=== PATIENT | female | born 1975 | race Caucasian/White ===

== ENCOUNTER 2017-01-12 13:05 | Emergency (ER) | payer MEDICAID ==
[~2017-01-12] VITALS: Ht 170.2 cm; Wt 120.0 kg
[~2017-01-12 13:05] MED LIST: IBUP-1542 PO; MAG-19 PO; OMEP20CA9 PO; ONDA4TAB35 PO; VIC PO
[2017-01-12 13:07] VITALS: Ht 170.2 cm; Wt 120.0 kg
[2017-01-12] MEDS ORDERED: SULF1TAB31 PO (13:27)
[2017-01-12] MEDS ORDERED: CEPH-443 PO (13:27)
[2017-01-12] MEDS ORDERED: IBUP-1542 PO (13:27)
[2017-01-12] MEDS ORDERED: LIDOCAINE 1% (MDV) 20 ML INJ SC ONE (13:30)
[2017-01-12] MEDS ORDERED: CEFTRIAXONE 1 GM INJ IM ONE (13:30)
[2017-01-12] MEDS ORDERED: TRIMETHOPRIM/SULFAMETHOX (DS) TAB PO ONE (13:30)
[2017-01-12] MEDS ORDERED: IBUPROFEN 600 MG TAB PO ONE (13:30)
--- NOTE | 2017-01-12 13:35 | ERD ---
ER Documentation Chief Complaint Date/Time DATE: 01/12/17 TIME: 13:33 Chief Complaint LT LEG PAIN /REDNESS /SWELLING SINCE TUESDAY HPI This 41-year-old female presents with some redness to the left fenton for last 2 days. Started possibly after a alliance party but patient denies any history of insect bite or history of trauma. She has no fevers or vomiting. ROS All systems reviewed and are negative except as per history of present illness. Medications Home Meds Active Scripts Ibuprofen* (Motrin*) 600 Mg Tab, 600 MG PO Q6, #15 TAB Prov:DENISE MESA MD 01/12/17 Sulfamethoxazole/Trimethoprim* (Bactrim Ds* Tablet) 1 Each Tablet, 1 TAB PO BID for 7 Days, #14 TAB Prov:DENISE MESA MD 01/12/17 Cephalexin* (Keflex*) 500 Mg Capsule, 500 MG PO QID for 7 Days, CAP Prov:DENISE MESA MD 01/12/17 Omeprazole* (Prilosec*) 20 Mg Capsule.dr, 20 MG PO DAILY, #30 CAP Prov:LOIS LO NP 01/28/16 Ondansetron Hcl* (Zofran* ODT) 4 mg -ODT Tab.disper, 4 MG PO Q8 Y for NAUSEA AND /OR VOMITING, #30 TAB Prov:LOIS LO NP 01/28/16 Magaldrate/Simethicone* (Mylanta*) 355 Ml Susp, 30 ML PO QID Y for GASTROINTESTINAL UPSET, #1 BOTTLE Prov:LOIS LO NP 01/28/16 Ibuprofen* (Motrin*) 600 Mg Tab, 600 MG PO Q6, #30 TAB Prov:SERGE SUTTON 04/29/15 Reported Medications Acetaminophen/Hydrocodone (Vicodin) 1 Tab Tab, PO Q8 06/25/12 [None] No Conflict Check 02/16/12 [None] No Conflict Check 10/12/10 Allergies Allergies: Coded Allergies: codeine (Verified Allergy, Mild, RASH, 04/29/15) PMhx/Soc History of Surgery: Yes ( x 3) Anesthesia Reaction: No Hx Neurological Disorder: No Hx Respiratory Disorders: No Hx Cardiac Disorders: Yes (HTN) Hx Psychiatric Problems: No Hx Miscellaneous Medical Probl: No Hx Alcohol Use: No Hx Substance Use: No Hx Tobacco Use: No Physical Exam Vitals Vital Signs Date Time Temp Pulse Resp B/P Pulse Ox O2 Delivery O2 Flow Rate FiO2 01/12/17 13:07 98.1 75 18 141/67 99 Physical Exam Const: [] Alert, [id number] per Head: Atraumatic Eyes: Normal Conjunctiva ENT: Normal External Ears, Nose and Mouth. Neck: Full range of motion..~ No meningismus. Resp: Clear to auscultation bilaterally Cardio: Regular rate and rhythm, no murmurs Abd: Soft, non tender, non distended. Normal bowel sounds Skin: No petechiae or rashes. There is some erythema and warmth in the left anterior fenton with some mild swelling. There is no calf swelling or Homans sign or fluctuance or obvious point of injury. Is no effusion or deformities of the foot. The redness extends from the left ankle to the left mid fenton. Back: No midline or flank tenderness Ext: No cyanosis, or edema Neur: Awake and alert Psych: Normal Mood and Affect Results 24 hrs Current Medications Medications (Trade) Dose Ordered Sig/Matt Route PRN Reason Start Time Stop Time Status Last Admin Dose Admin Ceftriaxone Sodium (Rocephin) 1 gm ONCE ONCE IM 01/12/17 13:30 01/12/17 13:31 DC Lidocaine (Xylocaine 1% (Mdv) 20 ml) 20 ml ONCE ONCE SC 01/12/17 13:30 01/12/17 13:31 DC Ibuprofen (Motrin) 600 mg ONCE ONCE PO 01/12/17 13:30 01/12/17 13:31 DC Trimethoprim/ Sulfamethoxazole (Bactrim (Ds)) 1 tab ONCE ONCE PO 01/12/17 13:30 01/12/17 13:31 DC Procedures/MDM Patient presents with signs and symptoms of cellulitis of the left lower extremity. Current signs and symptoms do not suggest fracture, dislocation, abscess, DVT, osteomyelitis, tenosynovitis, compartment syndrome, ischemia.. Patient was given Rocephin 1 g here and was treated with Bactrim and Keflex and ibuprofen at home and instructions for elevation. Patient was advised to recheck in 2 days for further evaluation otherwise recheck sooner for fevers, vomiting, worsening redness, new worsening symptoms. Departure Diagnosis: Primary Impression: Cellulitis Site of cellulitis: extremity Site of cellulitis of extremity: lower extremity Laterality: left Qualified Code: L03.116 - Cellulitis of left lower extremity Condition: Stable Patient Instructions: Cellulitis Additional Instructions: CHEQUE EN 2 SLATER, MAS PRONTO PARA MAS BUENO. JC SUN. PONE ARRIBA EN CASA. DENISE MESA MD Jan 12, 2017 13:34
== END 2017-01-12 14:04 | disposition home or self-care (01) ==
LOC: FTE 13:05
DX: L03.116 Cellulitis of left lower limb (principal); I10 Essential (primary) hypertension
CPT/HCPCS: 96372; J0696; Z7502; Z7610

== ENCOUNTER 2017-01-14 21:40 | Inpatient (IN) | payer MEDICAID ==
[~2017-01-14] VITALS: Ht 167.6 cm; Wt 121.3 kg
[~2017-01-14 21:40] MED LIST changes: +CEPH-443 PO; +SULF1TAB31 PO
--- NOTE | 2017-01-14 23:03 | ERA ---
ER Documentation Chief Complaint Date/Time DATE: 01/14/17 TIME: 23:01 Chief Complaint rednes and swelling right leg pain , treated for cellulitis seen her on01/12 (CORETTA TANG PA-C) HPI This is a morbidly obese 41-year-old female returning to the emergency department with a chief complaint of worsening left lower extremity infection. Patient was diagnosed with cellulitis 2 days ago given Keflex, Bactrim and ibuprofen for symptoms. Patient states that the first day the symptoms improved a little bit but today the symptoms are worse with increased pain and swelling and increased erythematous area. Patient denies fever, chills, using other medications for symptoms, aches or similar symptoms in the past. Patient denies medical conditions. No recent travel. Vaccination status up-to-date. Patient has no other complaints and describes no other associated manifestations per (CORETTA TANG PA-C) ROS All systems reviewed and are negative except as per history of present illness. (CORETTA TANG PA-C) Medications Home Meds Active Scripts Ibuprofen* (Motrin*) 600 Mg Tab, 600 MG PO Q6, #15 TAB Prov:DENSIE MESA MD 01/12/17 Sulfamethoxazole/Trimethoprim* (Bactrim Ds* Tablet) 1 Each Tablet, 1 TAB PO BID for 7 Days, #14 TAB Prov:DENISE MESA MD 01/12/17 Cephalexin* (Keflex*) 500 Mg Capsule, 500 MG PO QID for 7 Days, CAP Prov:DENISE MESA MD 01/12/17 Omeprazole* (Prilosec*) 20 Mg Capsule.dr, 20 MG PO DAILY, #30 CAP Prov:LOIS LO NP 01/28/16 Ondansetron Hcl* (Zofran* ODT) 4 mg -ODT Tab.disper, 4 MG PO Q8 Y for NAUSEA AND /OR VOMITING, #30 TAB Prov:LOIS LO NP 01/28/16 Magaldrate/Simethicone* (Mylanta*) 355 Ml Susp, 30 ML PO QID Y for GASTROINTESTINAL UPSET, #1 BOTTLE Prov:LOIS LO NP 01/28/16 Ibuprofen* (Motrin*) 600 Mg Tab, 600 MG PO Q6, #30 TAB Prov:SERGE SUTTON 04/29/15 Reported Medications Acetaminophen/Hydrocodone (Vicodin) 1 Tab Tab, PO Q8 06/25/12 [None] No Conflict Check 02/16/12 [None] No Conflict Check 10/12/10 Allergies Allergies: Coded Allergies: codeine (Verified Allergy, Mild, RASH, 04/29/15) PMhx/Soc History of Surgery: Yes ( x 3) Anesthesia Reaction: No Hx Neurological Disorder: No Hx Respiratory Disorders: No Hx Cardiac Disorders: Yes (HTN) Hx Psychiatric Problems: No Hx Miscellaneous Medical Probl: No Hx Alcohol Use: No Hx Substance Use: No Hx Tobacco Use: No (CORETTA TANG PA-C) Physical Exam Vitals Vital Signs Date Time Temp Pulse Resp B/P Pulse Ox O2 Delivery O2 Flow Rate FiO2 01/14/17 21:42 97.8 71 20 160/70 100 (CAMI LOAIZA MD) Physical Exam Const: Morbidly obese 41-year-old female in no acute distress. [place]- speaking. 's claim taker and seems reliable. Head: Atraumatic Eyes: Normal Conjunctiva ENT: Normal External Ears, Nose and Mouth. Neck: Full range of motion..~ No meningismus. Resp: Clear to auscultation bilaterally Cardio: Regular rate and rhythm, no murmurs. Cap refill less than 2 seconds. Posterior tibial pulses 2+ bilaterally. Dorsalis pedal pulses decreased due to edema. Abd: Soft, non tender, non distended. Normal bowel sounds Skin: Warm erythematous macule most consistent with cellulitis on the left lower extremity spanning from 2-3 cm above the ankle to 5-6 cm below the knee on the anterior side and below the calf in the region of the visible Delgado on the posterior side. No petechiae or rashes. Blanches. Moderate tenderness to palpation. Back: No midline or flank tenderness Ext: 2 pitting edema bilaterally. Edematous left foot on dorsal aspect. No cyanosis. Neur: Awake and alert Psych: Normal Mood and Affect (CORETTA TANG PA-C) Result Diagram: 01/16/1725 01/16/1725 Results 24 hrs Laboratory Tests Test 01/14/17 23:00 01/14/17 23:20 Urine Color YELLOW Urine Clarity SLIGHTLY CLOUDY Urine pH 5.0 Urine Specific [place] 1.026 Urine Ketones NEGATIVEmg/dL Urine Nitrite NEGATIVEmg/dL Urine Bilirubin NEGATIVEmg/dL Urine Urobilinogen NEGATIVEmg/dL Urine Leukocyte Esterase NEGATIVELeu/ul Urine Microscopic RBC 109/HPF Urine Microscopic WBC 2/HPF Urine Squamous Epithelial Cells FEW/HPF Urine Bacteria FEW/HPF Urine Mucus FEW/HPF Urine Hemoglobin 2+mg/dL Urine Glucose NEGATIVEmg/dL Urine Total Protein 1+mg/dl White Blood Count 10.510^3/ul Red Blood Count 4.7110^6/ul Hemoglobin 9.9g/dl Hematocrit 33.0% Mean Corpuscular Volume 70.1fl Mean Corpuscular Hemoglobin 21.0pg Mean Corpuscular Hemoglobin Concent 30.0g/dl Red Cell Distribution Width 15.5% Platelet Count 98190^3/UL Mean Platelet Volume 10.4fl Neutrophils % 58.0% Lymphocytes % 30.1% Monocytes % 8.5% Eosinophils % 2.2% Basophils % 0.4% Nucleated Red Blood Cells % 0.0/100WBC Neutrophils # 6.110^3/ul Lymphocytes # 3.210^3/ul Monocytes # 0.910^3/ul Eosinophils # 0.210^3/ul Basophils # 0.010^3/ul Nucleated Red Blood Cells # 0.010^3/ul Prothrombin Time 13.0Sec Prothrombin Time Ratio 1.0 INR International Normalized Ratio 0.98 Activated Partial Thromboplast Time 32.2Sec Sodium Level 142mmol/L Potassium Level 3.8mmol/L Chloride Level 102mmol/L Carbon Dioxide Level 24mmol/L Anion Gap 20 Blood Urea Nitrogen 11mg/dl Creatinine 0.77mg/dl Glucose Level 82mg/dl Calcium Level 9.5mg/dl Total Bilirubin 0.1mg/dl Direct Bilirubin 0.00mg/dl Indirect Bilirubin 0.1mg/dl Aspartate Amino Transf (AST/SGOT) 28IU/L Alanine Aminotransferase (ALT/SGPT) 37IU/L Alkaline Phosphatase 123IU/L Total Protein 8.2g/dl Albumin 4.2g/dl Globulin 4.00g/dl Albumin/Globulin Ratio 1.05 Current Medications Medications (Trade) Dose Ordered Sig/Matt Route PRN Reason Start Time Stop Time Status Last Admin Dose Admin Ceftriaxone Sodium 1 gm 1 gm ONCE ONCE IM 01/15/17 01:00 01/15/17 01:00 DC Ceftriaxone Sodium 50 ml @ 100 mls/hr ONCE ONCE IVPB 01/15/17 01:00 01/15/17 01:29 DC 01/15/17 00:52 Sodium Chloride (NS) 1,000 ml @ 1,000 mls/hr Q1H ONCE IV 01/15/17 01:00 01/15/17 01:59 DC 01/15/17 00:52 Morphine Sulfate (morphine) 4 mg ONCE ONCE IM 01/15/17 02:30 01/15/17 02:31 DC 01/15/17 02:18 (CAMI LOAIZA MD) Results 24 hrs Laboratory Tests Test 01/14/17 23:00 01/14/17 23:20 Urine Color YELLOW Urine Clarity SLIGHTLY CLOUDY Urine pH 5.0 Urine Specific [place] 1.026 Urine Ketones NEGATIVEmg/dL Urine Nitrite NEGATIVEmg/dL Urine Bilirubin NEGATIVEmg/dL Urine Urobilinogen NEGATIVEmg/dL Urine Leukocyte Esterase NEGATIVELeu/ul Urine Microscopic RBC 109/HPF Urine Microscopic WBC 2/HPF Urine Squamous Epithelial Cells FEW/HPF Urine Bacteria FEW/HPF Urine Mucus FEW/HPF Urine Hemoglobin 2+mg/dL Urine Glucose NEGATIVEmg/dL Urine Total Protein 1+mg/dl White Blood Count 10.510^3/ul Red Blood Count 4.7110^6/ul Hemoglobin 9.9g/dl Hematocrit 33.0% Mean Corpuscular Volume 70.1fl Mean Corpuscular Hemoglobin 21.0pg Mean Corpuscular Hemoglobin Concent 30.0g/dl Red Cell Distribution Width 15.5% Platelet Count 83815^3/UL Mean Platelet Volume 10.4fl Neutrophils % 58.0% Lymphocytes % 30.1% Monocytes % 8.5% Eosinophils % 2.2% Basophils % 0.4% Nucleated Red Blood Cells % 0.0/100WBC Neutrophils # 6.110^3/ul Lymphocytes # 3.210^3/ul Monocytes # 0.910^3/ul Eosinophils # 0.210^3/ul Basophils # 0.010^3/ul Nucleated Red Blood Cells # 0.010^3/ul Prothrombin Time 13.0Sec Prothrombin Time Ratio 1.0 INR International Normalized Ratio 0.98 Activated Partial Thromboplast Time 32.2Sec Sodium Level 142mmol/L Potassium Level 3.8mmol/L Chloride Level 102mmol/L Carbon Dioxide Level 24mmol/L Anion Gap 20 Blood Urea Nitrogen 11mg/dl Creatinine 0.77mg/dl Glucose Level 82mg/dl Calcium Level 9.5mg/dl Total Bilirubin 0.1mg/dl Direct Bilirubin 0.00mg/dl Indirect Bilirubin 0.1mg/dl Aspartate Amino Transf (AST/SGOT) 28IU/L Alanine Aminotransferase (ALT/SGPT) 37IU/L Alkaline Phosphatase 123IU/L Total Protein 8.2g/dl Albumin 4.2g/dl Globulin 4.00g/dl Albumin/Globulin Ratio 1.05 (CORETTA TANG PA-C) Procedures/MDM 41-year-old female with a chief complaint of rash on left lower extremity as described in the history and physical examination. Patient was diagnosed with cellulitis 2 days ago and states has gotten worse since then. I enlisted the help of my supervising physician who has suggested to get CBC, CMP, urinalysis, urine . Lab results largely unremarkable for systemic infection. I have little suspicion for DVT. My attending has evaluated the patient and agreed that admission is the most appropriate option at this time. Patient will now be transferred to the care of my attending Dr. Loaiza. 1 g of ceftriaxone has been ordered. (CORETTA TANG PA-C) Attending attestation: I personally evaluated this patient with the PA. Patient will need admission for IV antibiotics as she has failed outpatient therapy. No evidence of necrotizing skin infection or abscess. I discussed the patient with Dr. Conroy , wo accepted the patient for admission. IV antibiotics started in ED. (CAMI LOAIZA MD) Departure Diagnosis: Primary Impression: Cellulitis Qualified Code: L03.116 - Cellulitis of left lower extremity Condition: Fair Additional Instructions: Patient is being transferred to the care of Dr. Waters and pending admission CORETTA TANG PA-C Jan 14, 2017 23:03 CAMI LOAIZA MD Jan 17, 2017 01:19
[2017-01-14 23:42] LABS: BASOPHILS % 0.4 % (0.0-2.0); EOSINOPHILS # 0.2 10^3/ul (0.0-0.5); EOSINOPHILS % 2.2 % (0.0-7.0); HEMOGLOBIN 9.9 g/dl (12.0-16.0); LYMPHOCYTES # 3.2 10^3/ul (0.8-2.9); LYMPHOCYTES % 30.1 % (15.0-51.0); MEAN CORPUSCULAR VOLUME 70.1 fl (82.0-101.0); MEAN PLATELET VOLUME 10.4 fl (7.4-10.4); MONOCYTE # 0.9 10^3/ul (0.3-0.9); MONOCYTES % 8.5 % (0.0-11.0); NEUTROPHIL # 6.1 10^3/ul (1.6-7.5); PLATELET COUNT 401 10^3/UL (140-415); RED BLOOD COUNT 4.71 10^6/ul (4.20-5.40); RED CELL DISTRIBUTION WIDTH 15.5 % (11.5-14.5); WHITE BLOOD COUNT 10.5 10^3/ul (4.8-10.8)
[2017-01-14 23:52] LABS: ADD UMIC YES; UR ASCORBIC ACID NEGATIVE (NEGATIVE); UR BACTERIA FEW /HPF (NONE SEEN); UR BILIRUBIN (Dip) NEGATIVE (NEGATIVE); UR BLOOD (Dip) 2+ mg/dL (NEGATIVE); UR CLARITY SLIGHTLY CLOUDY (CLEAR); UR COLOR YELLOW (YELLOW); UR GLUCOSE (Dip) NEGATIVE (NEGATIVE); UR KETONES (Dip) NEGATIVE (NEGATIVE); UR LEUKOCYTE ESTERASE (Dip) NEGATIVE Leu/ul (NEGATIVE); UR MUCUS FEW /HPF (NONE SEEN); UR NITRITE (Dip) NEGATIVE (NEGATIVE); UR RBC 109 /HPF (0-5); UR SPECIFIC GRAVITY (Dip) 1.026 (1.003-1.030); UR SQUAMOUS EPITHELIAL CELL FEW /HPF (FEW); UR TOTAL PROTEIN (Dip) 1+ mg/dl (NEGATIVE); UR UROBILINOGEN (Dip) NEGATIVE (NEGATIVE)
[2017-01-15 00:12] LABS: ALBUMIN 4.2 g/dl (3.3-4.9); ALBUMIN/GLOBULIN RATIO 1.05; BILIRUBIN,INDIRECT 0.1 mg/dl (0-1.1); BILIRUBIN,TOTAL 0.1 mg/dl (0.2-1.3); CALCIUM 9.5 mg/dl (8.4-10.2); CREATININE 0.77 mg/dl (0.44-1.00); POTASSIUM 3.8 mmol/L (3.5-5.1); TOTAL PROTEIN 8.2 g/dl (6.1-8.1)
[2017-01-15 00:30] LABS: INR 0.98
[2017-01-15 00:31] LABS: PARTIAL THROMBOPLASTIN TIME 32.2 Sec (25.0-35.0)
[2017-01-15] MEDS ORDERED: SOD CHLORIDE 0.9% 1,000 ML IV ONE (01:00)
[2017-01-15] MEDS ORDERED: CEFTRIAXONE 1 GM/50 ML (PMX) 50 ML IVPB ONE (01:00)
[2017-01-15] MEDS ORDERED: CEFTRIAXONE 1 GM INJ IM ONE (01:00)
[2017-01-15] MEDS ORDERED: morphine 10 MG INJ IM ONE (02:30)
[2017-01-15] MEDS ORDERED: ONDANSETRON 4 MG INJ IV PRN (04:30)
[2017-01-15] MEDS ORDERED: ACETAMINOPHEN 325 MG TAB PO PRN ×2 (04:30→06:00)
[2017-01-15 05:40] VITALS: Ht 167.6 cm; Wt 121.3 kg
[2017-01-15] MEDS ORDERED: HYDROCODONE/APAP (5/325) TAB PO PRN (06:00)
[2017-01-15] MEDS ORDERED: VANCOMYCIN IV PER PHARMACY XX SCH (06:00)
[2017-01-15] MEDS ORDERED: morphine 2 MG INJ IV PRN (06:00)
[2017-01-15] MEDS: LEVOFLOXACIN 500 MG TAB GTB SCH (06:20)
[2017-01-15 06:29] VITALS: BP 157/76; RESP 20
[2017-01-15 07:18] VITALS: BP 145/79; RESP 18
[2017-01-15] MEDS ORDERED: VANCOMYCIN 2 GM in SOD CHLORIDE 0.9% 500 ML IVPB ONE (07:30)
[2017-01-15] MEDS: ENOXAPARIN 40 MG/0.4 ML SYG SC SCH (09:07)
--- NOTE | 2017-01-15 11:19 | HP ---
Date/Time of Note Date/Time of Note DATE: 01/15/17 TIME: 11:12 Assessment/Plan VTE Prophylaxis VTE Prophylaxis Intervention: LMWH Lines/Catheters IV Catheter Type (from Nrs): Saline Lock Assessment/Plan Assessment/Plan -Right lower extremity cellulitis -On Vanco and Levaquin -We will get ID consult Dr. Germain notified -We will also get venous Doppler to rule out any DVT -Elevate extremity all the time - Hypertension -UTI Protonix for GI prophylaxis, Lovenox for DVT prophylaxis Plan of care discussed with Dr. Conroy, staff, patient - HPI/ROS Admit Date/Time Admit Date/Time Jan 15, 2017 at 10:15 Hx of Present Illness This is a 41 year old morbidly obese female patient got admitted with complaint of worsening left lower extremity infection. Please note that patient was diagnosed with cellulitis 2 days ago given Keflex, Bactrim and ibuprofen for symptoms-but patient failed antibiotic therapy. Patient denies shortness of breath, calves pain, fever, chills, dizziness, palpitations , focal weakness and numbness, abdominal pain nausea vomiting Patient denies any other medical conditions. Denies any recent travel. Denies any fall or injury vaccination status up-to-date. [facility] ROS All systems reviewed and are negative except as per history of present illness. ROS ENT: no complaints Respiratory: no complaints Cardiovascular: no complaints Gastrointestinal: no complaints Genitourinary: no complaints Musculoskeletal: other Skin: erythema PMH/Family/Social Past Medical History Allergies Allergies: Coded Allergies: codeine (Verified Allergy, Mild, RASH, 04/29/15) PMhx/Soc History of Surgery: Yes ( x 3) Anesthesia Reaction: No Hx Neurological Disorder: No Hx Respiratory Disorders: No Hx Cardiac Disorders: Yes (HTN) Hx Psychiatric Problems: No Hx Miscellaneous Medical Probl: No Hx Alcohol Use: No Hx Substance Use: No Hx Tobacco Use: No Social History Alcohol Use: none Smoking Status: Never smoker Drug Use: none Exam/Review of Systems Vital Signs Vitals Vital Signs Date Time Temp Pulse Resp B/P Pulse Ox O2 Delivery O2 Flow Rate FiO2 01/15/17 07:18 97.7 66 18 145/79 100 Exam Constitutional: alert, oriented, well developed Respiratory: clear to auscultation, normal air movement Cardiovascular: nl pulses, regular rate and rhythm Gastrointestinal: non-tender, soft Extremities: other (Cap refill less than 2 seconds. Posterior tibial pulses 2 + bilaterally. Difficult to palpate dorsalis pedal pulses due to edema.) Neurological: nl speech Skin: other (Warm erythematous macule most consistent with cellulitis on the left lower extremity spanning from 2-3 cm above the ankle to 5-6 cm below the knee on the anterior side and below the calf in the region of the visible Delgado on the posterior side. No petechiae or rashes. Blanches. Moderate tenderness to palpation.) Labs Result Diagram: 01/14/17231901/14/172319 Medications Medications Current Medications Acetaminophen/ Hydrocodone Bitart ([place] (5/325)) 1 tab Q6H PRN PO moderate pain; Start 01/15/17 at 06:00 Enoxaparin Sodium (Lovenox) 40 mg DAILY SC Last administered on 01/15/17 09:07 ; Admin Dose 40 MG; Start 01/15/17 at 09:00 Levofloxacin (Levaquin) 500 mg DAILY@06 GTB Last administered on 01/15/17 06: 20; Admin Dose 500 MG; Start 01/15/17 at 06:00 Acetaminophen (Tylenol Tab) 650 mg Q4H PRN PO PAIN AND OR ELEVATED TEMP; Start 01/15/17 at 06:00 Morphine Sulfate 2 mg 2 mg Q3H PRN IV severe pain; Start 01/15/17 at 06:00 Vancomycin HCl 2 gm/Sodium Chloride 500 ml @ 125 mls/hr ONCE ONCE IVPB Last administered on 01/15/17 07:50; Admin Dose 125 MLS/HR; Start 01/15/17 at 07:30 ; Stop 01/15/17 at 11:29 Vancomycin HCl/ Sodium Chloride (Vancocin/NS) 250 ml @ 83.333 mls/ hr Q12H IVPB ; Start 01/15/17 at 19:30 ADRIANNA FRANCIS Jan 15, 2017 11:19
--- NOTE | 2017-01-15 13:48 | RADRPT ---
PROCEDURE: US left lower extremity veins. CLINICAL INDICATION: Left leg pain and swelling. TECHNIQUE: Multiple longitudinal and transverse images of the left lower extremity veins were obta ined with abrams scale and color Doppler imaging. The common femoral vein, femoral vein, and popliteal vein were evaluated. 2D grayscale measurements with compression sonography, pulsed Doppler, color D oppler, and pulsed Doppler with augmentation. COMPARISON: No prior studies are available for comparison. FINDINGS: The left common femoral, femoral and popliteal veins are normally compressible throughout. Color fl ow demonstrates normal filling of the vessels. Normal waveforms are visualized and there is normal response to augmentation. IMPRESSION: 1. No evidence of deep vein thrombosis involving the left lower extremity. RPTAT: QQ .Francisco Bales MD, MD Date Time Electronically viewed and signed by .Francisco Bales MD, on 01/15/2017 13:47 .R/
--- NOTE | 2017-01-15 14:12 | QN ---
Documentation Comment ID consult requested by Max Agarwal OB/GYN PHYSICIAN for RLE cellulitis. Dr. Morgan will see pt soon. HARRISON HARRIS NP Jan 15, 2017 14:12
[2017-01-15 14:41] VITALS: BP 141/83; RESP 18
[2017-01-15 19:24] VITALS: BP 174/72; RESP 20
[2017-01-15] MEDS: VANCOMYCIN 1.5 GM in SOD CHLORIDE 0.9% 250 ML IVPB SCH (20:12)
[2017-01-16 02:00] VITALS: BP 152/70
[2017-01-16] MEDS: PANTOPRAZOLE (EC) 40 MG TAB PO SCH (06:08)
[2017-01-16] MEDS: LEVOFLOXACIN 500 MG TAB GTB SCH (06:08)
[2017-01-16 07:00] LABS: BASOPHILS % 0.3 % (0.0-2.0); EOSINOPHILS # 0.1 10^3/ul (0.0-0.5); EOSINOPHILS % 1.9 % (0.0-7.0); HEMATOCRIT 30.5 % (37.0-47.0); HEMOGLOBIN 9.1 g/dl (12.0-16.0); LYMPHOCYTES % 28.7 % (15.0-51.0); MEAN CORPUSCULAR HEMOGLOBIN 20.7 pg (29.0-33.0); MEAN CORPUSCULAR HGB CONC 29.8 g/dl (32.0-37.0); MEAN CORPUSCULAR VOLUME 69.5 fl (82.0-101.0); MEAN PLATELET VOLUME 10.5 fl (7.4-10.4); MONOCYTE # 0.5 10^3/ul (0.3-0.9); MONOCYTES % 7.1 % (0.0-11.0); NEUTROPHIL # 4.3 10^3/ul (1.6-7.5); NEUTROPHILS % 61.4 % (39.0-77.0); PLATELET COUNT 333 10^3/UL (140-415); RED BLOOD COUNT 4.39 10^6/ul (4.20-5.40); RED CELL DISTRIBUTION WIDTH 15.5 % (11.5-14.5)
[2017-01-16 07:30] VITALS: BP 136/63; RESP 18
[2017-01-16 07:31] LABS: CALCIUM 9.3 mg/dl (8.4-10.2); CREATININE 0.62 mg/dl (0.44-1.00); POTASSIUM 4.2 mmol/L (3.5-5.1)
[2017-01-16 07:32] LABS: ALBUMIN 3.6 g/dl (3.3-4.9); ALBUMIN/GLOBULIN RATIO 1.02; BILIRUBIN,INDIRECT 0.2 mg/dl (0-1.1); BILIRUBIN,TOTAL 0.2 mg/dl (0.2-1.3); TOTAL PROTEIN 7.1 g/dl (6.1-8.1)
[2017-01-16] MEDS: VANCOMYCIN 1.5 GM in SOD CHLORIDE 0.9% 250 ML IVPB SCH ×2 (08:26→20:11)
[2017-01-16] MEDS: ENOXAPARIN 40 MG/0.4 ML SYG SC SCH (08:31)
--- NOTE | 2017-01-16 10:40 | PN ---
Date/Time of Note Date/Time of Note DATE: 01/16/17 TIME: 10:34 Assessment/Plan VTE Prophylaxis VTE Prophylaxis Intervention: other Lines/Catheters IV Catheter Type (from Nrs): Saline Lock Assessment/Plan Assessment/Plan -Right lower extremity cellulitis -On Vanco and Levaquin -We will get ID consult Dr. Germain notified -venous Doppler to rule out any DVT= negative -Elevate extremity all the time - Hypertension -UTI Protonix for GI prophylaxis, Lovenox for DVT prophylaxis Plan of care discussed with Dr. Conroy, staff, patient Subjective 24 Hr Interval Summary Respiratory: no complaints Cardiovascular: no complaints Gastrointestinal: no complaints Genitourinary: no complaints Musculoskeletal: no complaints Exam/Review of Systems Vital Signs Vitals Vital Signs Date Time Temp Pulse Resp B/P Pulse Ox O2 Delivery O2 Flow Rate FiO2 01/16/17 07:30 98.2 60 18 136/63 99 Intake and Output 01/15/17 01/15/17 01/16/17 15:00 23:00 07:00 Intake Total 500 ml 1180 ml 850 ml Balance 500 ml 1180 ml 850 ml Exam Constitutional: alert, well developed Respiratory: clear to auscultation, normal air movement Cardiovascular: regular rate and rhythm Gastrointestinal: non-tender, soft Musculoskeletal: other Extremities: edema (RLE- CELLULITIS) Results Result Diagram: 01/16/17 0525 01/16/17 0525 Results 24 hrs Laboratory Tests Test 01/16/17 05:25 01/16/17 08:01 White Blood Count 7.0 # Red Blood Count 4.39 Hemoglobin 9.1 L Hematocrit 30.5 L Mean Corpuscular Volume 69.5 L Mean Corpuscular Hemoglobin 20.7 L Mean Corpuscular Hemoglobin Concent 29.8 L Red Cell Distribution Width 15.5 H Platelet Count 333 Mean Platelet Volume 10.5 H Neutrophils % 61.4 Lymphocytes % 28.7 Monocytes % 7.1 Eosinophils % 1.9 Basophils % 0.3 Nucleated Red Blood Cells % 0.0 Neutrophils # 4.3 Lymphocytes # 2.0 Monocytes # 0.5 Eosinophils # 0.1 Basophils # 0.0 Nucleated Red Blood Cells # 0.0 Sodium Level 143 Potassium Level 4.2 Chloride Level 104 Carbon Dioxide Level 25 Anion Gap 18 H Blood Urea Nitrogen 7 Creatinine 0.62 Glucose Level 89 Calcium Level 9.3 Total Bilirubin 0.2 Direct Bilirubin 0.00 Indirect Bilirubin 0.2 Aspartate Amino Transf (AST/SGOT) 25 Alanine Aminotransferase (ALT/SGPT) 41 Alkaline Phosphatase 107 Total Protein 7.1 # Albumin 3.6 Globulin 3.50 H Albumin/Globulin Ratio 1.02 Bedside Glucose 101 Medications Medications Current Medications Acetaminophen/ Hydrocodone Bitart ([place] (5/325)) 1 tab Q6H PRN PO moderate pain; Start 01/15/17 at 06:00 Enoxaparin Sodium (Lovenox) 40 mg DAILY SC Last administered on 01/16/17 08:31 ; Admin Dose 40 MG; Start 01/15/17 at 09:00 Levofloxacin (Levaquin) 500 mg DAILY@06 GTB Last administered on 01/16/17 06: 08; Admin Dose 500 MG; Start 01/15/17 at 06:00 Acetaminophen (Tylenol Tab) 650 mg Q4H PRN PO PAIN AND OR ELEVATED TEMP Last administered on 01/15/17 14:45; Admin Dose 650 MG; Start 01/15/17 at 06:00 Morphine Sulfate 2 mg 2 mg Q3H PRN IV severe pain; Start 01/15/17 at 06:00 Vancomycin HCl/ Sodium Chloride (Vancocin/NS) 250 ml @ 83.333 mls/ hr Q12H IVPB Last administered on 01/16/17 08:26; Admin Dose 83.333 MLS/HR; Start at 19:30 Pantoprazole (Protonix Tab) 40 mg DAILY@06 PO Last administered on 01/16/17 06 :08; Admin Dose 40 MG; Start 01/16/17 at 06:00 ADRIANNA FRANCIS Jan 16, 2017 10:40
[2017-01-16] MEDS ORDERED: hydrALAzine 20 MG INJ IV PRN (11:00)
--- NOTE | 2017-01-16 12:23 | CONS ---
Date/Time of Note Date/Time of Note DATE: 01/16/17 TIME: 12:22 Assessment/Plan Assessment/Plan Chief Complaint/Hosp Course patient seen and examined. full note to follow. Problems: Consultation Date/Type/Reason Admit Date/Time Jan 15, 2017 at 10:15 Initial Consult Date Exam/Review of Systems Vital Signs Vitals Vital Signs Date Time Temp Pulse Resp B/P Pulse Ox O2 Delivery O2 Flow Rate FiO2 01/16/17 07:30 98.2 60 18 136/63 99 Intake and Output 01/15/17 01/15/17 01/16/17 15:00 23:00 07:00 Intake Total 500 ml 1180 ml 850 ml Balance 500 ml 1180 ml 850 ml Results Result Diagram: 01/16/17 0525 01/16/17 0525 Results 24 hrs Laboratory Tests Test 01/16/17 05:25 01/16/17 08:01 White Blood Count 7.0 # Red Blood Count 4.39 Hemoglobin 9.1 L Hematocrit 30.5 L Mean Corpuscular Volume 69.5 L Mean Corpuscular Hemoglobin 20.7 L Mean Corpuscular Hemoglobin Concent 29.8 L Red Cell Distribution Width 15.5 H Platelet Count 333 Mean Platelet Volume 10.5 H Neutrophils % 61.4 Lymphocytes % 28.7 Monocytes % 7.1 Eosinophils % 1.9 Basophils % 0.3 Nucleated Red Blood Cells % 0.0 Neutrophils # 4.3 Lymphocytes # 2.0 Monocytes # 0.5 Eosinophils # 0.1 Basophils # 0.0 Nucleated Red Blood Cells # 0.0 Sodium Level 143 Potassium Level 4.2 Chloride Level 104 Carbon Dioxide Level 25 Anion Gap 18 H Blood Urea Nitrogen 7 Creatinine 0.62 Glucose Level 89 Calcium Level 9.3 Total Bilirubin 0.2 Direct Bilirubin 0.00 Indirect Bilirubin 0.2 Aspartate Amino Transf (AST/SGOT) 25 Alanine Aminotransferase (ALT/SGPT) 41 Alkaline Phosphatase 107 Total Protein 7.1 # Albumin 3.6 Globulin 3.50 H Albumin/Globulin Ratio 1.02 Bedside Glucose 101 Medications Medications Current Medications Acetaminophen/ Hydrocodone Bitart ([place] (5/325)) 1 tab Q6H PRN PO moderate pain; Start 01/15/17 at 06:00 Enoxaparin Sodium (Lovenox) 40 mg DAILY SC Last administered on 01/16/17t 08:31 ; Admin Dose 40 MG; Start 01/15/17 at 09:00 Levofloxacin (Levaquin) 500 mg DAILY@06 GTB Last administered on 01/16/17 06: 08; Admin Dose 500 MG; Start 01/15/17 at 06:00 Acetaminophen (Tylenol Tab) 650 mg Q4H PRN PO PAIN AND OR ELEVATED TEMP Last administered on 01/15/17 14:45; Admin Dose 650 MG; Start 01/15/17 at 06:00 Morphine Sulfate 2 mg 2 mg Q3H PRN IV severe pain; Start 01/15/17 at 06:00 Vancomycin HCl/ Sodium Chloride (Vancocin/NS) 250 ml @ 83.333 mls/ hr Q12H IVPB Last administered on 01/16/17 08:26; Admin Dose 83.333 MLS/HR; Start at 19:30 Pantoprazole (Protonix Tab) 40 mg DAILY@06 PO Last administered on 01/16/17 06 :08; Admin Dose 40 MG; Start 01/16/17 at 06:00 Amlodipine Besylate (Norvasc) 2.5 mg BID PO ; Start 01/16/17 at 21:00 Hydralazine HCl (Apresoline) 10 mg Q6H PRN IV SYSTOLIC BP ABOVE 160; Start at 11:00 Miscellaneous Information (*Rx Drug Level Order Reminder*) VANCOMYCIN TROUGH AT 1830 ONCE ONCE XX ; Start 01/16/17 at 18:30; Stop 01/16/17 at 18:31 LEAH CORREA MD Jan 16, 2017 12:23
[2017-01-16 13:37] VITALS: BP 138/74; RESP 18
[2017-01-16 19:31] VITALS: BP 117/58; RESP 18
[2017-01-16] MEDS: AMLODIPINE 2.5 MG TAB PO SCH (20:11)
[2017-01-17 02:00] VITALS: BP 134/61; RESP 18
[2017-01-17] MEDS ORDERED: VANCOMYCIN 1.75 GM in NS 500 ML IVPB SCH (05:00)
[2017-01-17 05:55] LABS: BASOPHILS % 0.4 % (0.0-2.0); EOSINOPHILS # 0.2 10^3/ul (0.0-0.5); EOSINOPHILS % 1.9 % (0.0-7.0); HEMATOCRIT 31.6 % (37.0-47.0); HEMOGLOBIN 9.3 g/dl (12.0-16.0); LYMPHOCYTES # 2.9 10^3/ul (0.8-2.9); LYMPHOCYTES % 30.1 % (15.0-51.0); MEAN CORPUSCULAR HEMOGLOBIN 20.4 pg (29.0-33.0); MEAN CORPUSCULAR HGB CONC 29.4 g/dl (32.0-37.0); MEAN CORPUSCULAR VOLUME 69.3 fl (82.0-101.0); MEAN PLATELET VOLUME 10.2 fl (7.4-10.4); MONOCYTE # 0.6 10^3/ul (0.3-0.9); MONOCYTES % 6.5 % (0.0-11.0); NEUTROPHIL # 5.7 10^3/ul (1.6-7.5); NEUTROPHILS % 60.2 % (39.0-77.0); PLATELET COUNT 366 10^3/UL (140-415); RED BLOOD COUNT 4.56 10^6/ul (4.20-5.40); RED CELL DISTRIBUTION WIDTH 15.4 % (11.5-14.5); WHITE BLOOD COUNT 9.5 10^3/ul (4.8-10.8)
[2017-01-17] MEDS: LEVOFLOXACIN 500 MG TAB GTB SCH (06:08)
[2017-01-17] MEDS: PANTOPRAZOLE (EC) 40 MG TAB PO SCH (06:08)
[2017-01-17 06:40] LABS: CALCIUM 9.1 mg/dl (8.4-10.2); CREATININE 0.87 mg/dl (0.44-1.00); POTASSIUM 4.3 mmol/L (3.5-5.1)
[2017-01-17 07:25] VITALS: BP 121/56; RESP 18
--- NOTE | 2017-01-17 08:12 | CONS ---
Date/Time of Note Date/Time of Note DATE: 01/16/17 TIME: 14:00 Assessment/Plan Assessment/Plan Chief Complaint/Hosp Course A: Cellulitis Obesity HTN R: check hga1c if not already done hiv screen cefazolin Problems: Consultation Date/Type/Reason Admit Date/Time Jan 15, 2017 at 10:15 Date of Consultation: Jan 17, 2017 Reason for Consultation abx recs Referring Provider: ADE RIVAS MD Hx of Present Illness 41 yo female with Left lower extremity cellulitis. She apparently failed outpatient po abx. ENT: no complaints Respiratory: no complaints Cardiovascular: no complaints Gastrointestinal: no complaints Genitourinary: no complaints Musculoskeletal: no complaints Skin: erythema Social History Alcohol Use: none Smoking Status: Never smoker Drug Use: none Exam/Review of Systems Vital Signs Vitals Vital Signs Date Time Temp Pulse Resp B/P Pulse Ox O2 Delivery O2 Flow Rate FiO2 01/17/17 07:25 98.0 59 18 121/56 97 Intake and Output 01/16/17 01/16/17 01/17/17 15:00 23:00 07:00 Intake Total 1210 ml 1075 ml Balance 1210 ml 1075 ml Exam Constitutional: alert, oriented, well developed Psych: nl mood/affect, no complaints Head: atraumatic, normocephalic Eyes: EOMI, PERRL, nl conjunctiva, nl lids, nl sclera ENMT: nl external ears & nose, nl lips & teeth, nl nasal mucosa & septum Neck: non-tender, supple Respiratory: clear to auscultation, normal air movement Cardiovascular: nl pulses, regular rate and rhythm Gastrointestinal: nl liver, spleen, non-tender, soft Musculoskeletal: nl extremities to inspection, nl gait and stance Extremities: other (left lower extremity cellulitic changes, no purulent drainage noted. ) Neurological: PRODUCT MGR II-XII intact, nl mental status, nl speech, nl strength Results Result Diagram: 01/17/17 0513 01/17/17 05 Results 24 hrs Laboratory Tests Test 01/16/17 18:35 01/17/17 05:13 Vancomycin Level Trough 8.6 L White Blood Count 9.5 # Red Blood Count 4.56 Hemoglobin 9.3 L Hematocrit 31.6 L Mean Corpuscular Volume 69.3 L Mean Corpuscular Hemoglobin 20.4 L Mean Corpuscular Hemoglobin Concent 29.4 L Red Cell Distribution Width 15.4 H Platelet Count 366 Mean Platelet Volume 10.2 Neutrophils % 60.2 Lymphocytes % 30.1 Monocytes % 6.5 Eosinophils % 1.9 Basophils % 0.4 Nucleated Red Blood Cells % 0.0 Neutrophils # 5.7 Lymphocytes # 2.9 Monocytes # 0.6 Eosinophils # 0.2 Basophils # 0.0 Nucleated Red Blood Cells # 0.0 Sodium Level 144 Potassium Level 4.3 Chloride Level 104 Carbon Dioxide Level 26 Anion Gap 18 H Blood Urea Nitrogen 10 Creatinine 0.87 Glucose Level 102 Calcium Level 9.1 Medications Medications Current Medications Acetaminophen/ Hydrocodone Bitart ([place] (5/325)) 1 tab Q6H PRN PO moderate pain; Start 01/15/17 at 06:00 Enoxaparin Sodium (Lovenox) 40 mg DAILY SC Last administered on 01/16/17 08:31 ; Admin Dose 40 MG; Start 01/15/17 at 09:00 Levofloxacin (Levaquin) 500 mg DAILY@06 GTB Last administered on 01/17/17 06: 08; Admin Dose 500 MG; Start 01/15/17 at 06:00 Acetaminophen (Tylenol Tab) 650 mg Q4H PRN PO PAIN AND OR ELEVATED TEMP Last administered on 01/15/17 14:45; Admin Dose 650 MG; Start 01/15/17 at 06:00 Morphine Sulfate (morphine) 2 mg Q3H PRN IV severe pain; Start 01/15/17 at 06: 00 Pantoprazole (Protonix Tab) 40 mg DAILY@06 PO Last administered on 01/17/17 06 :08; Admin Dose 40 MG; Start 01/16/17 at 06:00 Amlodipine Besylate (Norvasc) 2.5 mg BID PO Last administered on 01/16/17 20: 11; Admin Dose 2.5 MG; Start 01/16/17 at 21:00 Hydralazine HCl 10 mg 10 mg Q6H PRN IV SYSTOLIC BP ABOVE 160; Start 01/16/17 at 11:00 Vancomycin HCl/ Sodium Chloride (Vancocin/NS) 500 ml @ 125 mls/hr Q12H IVPB Last administered on 01/17/17 06:08; Admin Dose 125 MLS/HR; Start 01/17/17 at 05:00 LEAH CORREA MD Jan 17, 2017 08:12
[2017-01-17] MEDS: CEFAZOLIN 1 GM/50 ML (PMX) 50 ML IVPB SCH ×4 (08:30→22:00)
[2017-01-17] MEDS: AMLODIPINE 2.5 MG TAB PO SCH ×2 (08:39→21:00)
[2017-01-17 08:41] VITALS: BP 130/72; PULSE 63
[2017-01-17] MEDS: ENOXAPARIN 40 MG/0.4 ML SYG SC SCH (08:46)
--- NOTE | 2017-01-17 11:50 | CONS ---
Date/Time of Note Date/Time of Note DATE: 01/17/17 TIME: 11:46 Assessment/Plan Assessment/Plan Chief Complaint/Hosp Course assessment/impression - skin and soft tissue infection of LLE, improving - tinea pedis of L foot recommendations - continue cefazoline (01/17/2017); once edema and erythema improve, IV antibiotic can be switched to PO antibiotic e.g. cephalexin +/- Bactrim - start applying clotrimazole cream for tinea pedis management d/w Pt Problems: Consultation Date/Type/Reason Admit Date/Time Jan 15, 2017 at 10:15 Initial Consult Date 01/17/17 Type of Consultation: ID Referring Provider: ADE RIVAS MD 24 HR Interval Summary Constitutional: improved Detailed Summary Eyes: no complaints ENT: no complaints Respiratory: no complaints Cardiovascular: no complaints Gastrointestinal: no complaints Genitourinary: no complaints Musculoskeletal: no complaints Skin: erythema (LLE, improved. No pain), other (dry flakiness of skin of L sole and btween toes), rash (dry scaly skin of L sole and inter-web space) Exam/Review of Systems Vital Signs Vitals Vital Signs Date Time Temp Pulse Resp B/P Pulse Ox O2 Delivery O2 Flow Rate FiO2 01/17/17 08:41 63 130/72 01/17/17 07:25 98.0 18 97 Intake and Output 01/16/17 01/16/17 01/17/17 15:00 23:00 07:00 Intake Total 1210 ml 1075 ml Balance 1210 ml 1075 ml Exam Constitutional: alert, oriented, well developed Psych: nl mood/affect, no complaints Head: atraumatic, normocephalic Eyes: EOMI, nl conjunctiva, nl lids ENMT: nl external ears & nose, nl lips & teeth, nl nasal mucosa & septum Neck: supple Extremities: edema (LLE) Skin: other (erythema of LLE, non-TTP), rash or lesions (scaly skin of L sole and inter-web space) Results Result Diagram: 01/17/17 0513 01/17/17 0513 Results 24 hrs Laboratory Tests Test 01/16/17 18:35 01/17/17 05:13 Vancomycin Level Trough 8.6 L White Blood Count 9.5 # Red Blood Count 4.56 Hemoglobin 9.3 L Hematocrit 31.6 L Mean Corpuscular Volume 69.3 L Mean Corpuscular Hemoglobin 20.4 L Mean Corpuscular Hemoglobin Concent 29.4 L Red Cell Distribution Width 15.4 H Platelet Count 366 Mean Platelet Volume 10.2 Neutrophils % 60.2 Lymphocytes % 30.1 Monocytes % 6.5 Eosinophils % 1.9 Basophils % 0.4 Nucleated Red Blood Cells % 0.0 Neutrophils # 5.7 Lymphocytes # 2.9 Monocytes # 0.6 Eosinophils # 0.2 Basophils # 0.0 Nucleated Red Blood Cells # 0.0 Sodium Level 144 Potassium Level 4.3 Chloride Level 104 Carbon Dioxide Level 26 Anion Gap 18 H Blood Urea Nitrogen 10 Creatinine 0.87 Glucose Level 102 Calcium Level 9.1 Medications Medications Current Medications Acetaminophen/ Hydrocodone Bitart ([place] (5/325)) 1 tab Q6H PRN PO moderate pain; Start 01/15/17 at 06:00 Enoxaparin Sodium (Lovenox) 40 mg DAILY SC Last administered on 01/17/17 08:46 ; Admin Dose 40 MG; Start 01/15/17 at 09:00 Acetaminophen (Tylenol Tab) 650 mg Q4H PRN PO PAIN AND OR ELEVATED TEMP Last administered on 01/15/17 14:45; Admin Dose 650 MG; Start 01/15/17 at 06:00 Morphine Sulfate (morphine) 2 mg Q3H PRN IV severe pain; Start 01/15/17 at 06: 00 Pantoprazole (Protonix Tab) 40 mg DAILY@06 PO Last administered on 01/17/17 06 :08; Admin Dose 40 MG; Start 01/16/17 at 06:00 Amlodipine Besylate (Norvasc) 2.5 mg BID PO Last administered on 01/17/17 08: 39; Admin Dose 2.5 MG; Start 01/16/17 at 21:00 Hydralazine HCl 10 mg 10 mg Q6H PRN IV SYSTOLIC BP ABOVE 160; Start 01/16/17 at 11:00 Cefazolin Sodium (Ancef 1 Gm/50 ml (Pmx)) 50 ml @ 100 mls/hr Q8 IVPB Last administered on 01/17/17 10:48; Admin Dose 100 MLS/HR; Start 01/17/17 at 08:30 LEXIS HERNANDEZ M.D. Jan 17, 2017 11:50
[2017-01-17] MEDS: CLOTRIMAZOLE 1% 30 GM CR TOP SCH ×2 (13:18→21:00)
[2017-01-17 14:12] VITALS: BP 128/58; RESP 18
--- NOTE | 2017-01-17 16:01 | PN ---
Date/Time of Note Date/Time of Note DATE: 01/17/17 TIME: 15:50 Assessment/Plan VTE Prophylaxis VTE Prophylaxis Intervention: SCD's Lines/Catheters [facility] Saline Lock Assessment/Plan Chief Complaint/Hosp Course Patient stated improvement in left lower extremity pain erythema and edema, remains afebrile, continue antibiotics. Patient's diagnosis and plan of care explained to the patient using hourly sign language interpreter. Problems: Assessment/Plan - Left lower extremity cellulitis. Dr. Rivera is following an infection disease consultation. Continue antibiotics per ID. - Tinea pedis of L foot, continue clotrimazole cream. - Hypertension by history, currently patient is normotensive. - Morbid obesity with BMI of 43.2. Further recommendations based on clinical course. Plan of care discussed with Dr. Conroy. Exam/Review of Systems Vital Signs Vitals Vital Signs Date Time Temp Pulse Resp B/P Pulse Ox O2 Delivery O2 Flow Rate FiO2 01/17/17 14:12 97.9 61 18 128/58 99 Intake and Output 01/16/17 01/16/17 01/17/17 15:00 23:00 07:00 Intake Total 1210 ml 1075 ml Balance 1210 ml 1075 ml Exam Constitutional: alert, oriented Head: normocephalic Neck: supple Respiratory: normal air movement Cardiovascular: nl pulses Gastrointestinal: non-tender, soft Extremities: normal pulses, other (Left lower extremity was improved erythema and edema) Results Result Diagram: 01/17/17 0513 01/17/17 0513 Results 24 hrs Laboratory Tests Test 01/16/17 18:35 01/17/17 05:13 Vancomycin Level Trough 8.6 L White Blood Count 9.5 # Red Blood Count 4.56 Hemoglobin 9.3 L Hematocrit 31.6 L Mean Corpuscular Volume 69.3 L Mean Corpuscular Hemoglobin 20.4 L Mean Corpuscular Hemoglobin Concent 29.4 L Red Cell Distribution Width 15.4 H Platelet Count 366 Mean Platelet Volume 10.2 Neutrophils % 60.2 Lymphocytes % 30.1 Monocytes % 6.5 Eosinophils % 1.9 Basophils % 0.4 Nucleated Red Blood Cells % 0.0 Neutrophils # 5.7 Lymphocytes # 2.9 Monocytes # 0.6 Eosinophils # 0.2 Basophils # 0.0 Nucleated Red Blood Cells # 0.0 Sodium Level 144 Potassium Level 4.3 Chloride Level 104 Carbon Dioxide Level 26 Anion Gap 18 H Blood Urea Nitrogen 10 Creatinine 0.87 Glucose Level 102 Calcium Level 9.1 Medications Medications Current Medications Acetaminophen/ Hydrocodone Bitart ([place] (5/325)) 1 tab Q6H PRN PO moderate pain; Start 01/15/17 at 06:00 Enoxaparin Sodium (Lovenox) 40 mg DAILY SC Last administered on 01/17/17 08:46 ; Admin Dose 40 MG; Start 01/15/17 at 09:00 Acetaminophen (Tylenol Tab) 650 mg Q4H PRN PO PAIN AND OR ELEVATED TEMP Last administered on 01/15/17 14:45; Admin Dose 650 MG; Start 01/15/17 at 06:00 Morphine Sulfate (morphine) 2 mg Q3H PRN IV severe pain; Start 01/15/17 at 06: 00 Pantoprazole (Protonix Tab) 40 mg DAILY@06 PO Last administered on 01/17/17 06 :08; Admin Dose 40 MG; Start 01/16/17 at 06:00 Amlodipine Besylate (Norvasc) 2.5 mg BID PO Last administered on 01/17/17 08: 39; Admin Dose 2.5 MG; Start 01/16/17 at 21:00 Hydralazine HCl 10 mg 10 mg Q6H PRN IV SYSTOLIC BP ABOVE 160; Start 01/16/17 at 11:00 Cefazolin Sodium (Ancef 1 Gm/50 ml (Pmx)) 50 ml @ 100 mls/hr Q8 IVPB Last administered on 01/17/17 14:36; Admin Dose 100 MLS/HR; Start 01/17/17 at 08:30 Clotrimazole (Lotrimin Cr) 1 applic BID TOP Last administered on 01/17/17 13: 18; Admin Dose 1 APPLIC; Start 01/17/17 at 13:30; Stop 01/27/17 at 20:59 CECILIA GARCIA Jan 17, 2017 16:00
[2017-01-17 20:16] VITALS: BP 132/62; RESP 18
[2017-01-18 02:00] VITALS: BP 134/60; RESP 18
[2017-01-18] MEDS: PANTOPRAZOLE (EC) 40 MG TAB PO SCH (05:40)
[2017-01-18] MEDS: CEFAZOLIN 1 GM/50 ML (PMX) 50 ML IVPB SCH ×3 (05:41→21:51)
[2017-01-18 06:31] LABS: BASOPHIL # 0.1 10^3/ul (0.0-0.1); BASOPHILS % 0.5 % (0.0-2.0); EOSINOPHILS # 0.2 10^3/ul (0.0-0.5); HEMATOCRIT 32.1 % (37.0-47.0); HEMOGLOBIN 9.5 g/dl (12.0-16.0); LYMPHOCYTES % 27.7 % (15.0-51.0); MEAN CORPUSCULAR HEMOGLOBIN 20.7 pg (29.0-33.0); MEAN CORPUSCULAR HGB CONC 29.6 g/dl (32.0-37.0); MEAN CORPUSCULAR VOLUME 69.8 fl (82.0-101.0); MEAN PLATELET VOLUME 10.1 fl (7.4-10.4); MONOCYTE # 0.7 10^3/ul (0.3-0.9); MONOCYTES % 6.2 % (0.0-11.0); NEUTROPHIL # 6.8 10^3/ul (1.6-7.5); NEUTROPHILS % 62.6 % (39.0-77.0); PLATELET COUNT 383 10^3/UL (140-415); RED CELL DISTRIBUTION WIDTH 15.1 % (11.5-14.5); WHITE BLOOD COUNT 10.9 10^3/ul (4.8-10.8)
[2017-01-18 07:04] LABS: CALCIUM 9.3 mg/dl (8.4-10.2); CREATININE 0.74 mg/dl (0.44-1.00); POTASSIUM 4.2 mmol/L (3.5-5.1)
[2017-01-18 07:31] VITALS: BP 122/61; RESP 18
[2017-01-18] MEDS: CLOTRIMAZOLE 1% 30 GM CR TOP SCH ×2 (08:13→20:15)
[2017-01-18] MEDS: AMLODIPINE 2.5 MG TAB PO SCH ×2 (08:13→20:15)
[2017-01-18] MEDS: ENOXAPARIN 40 MG/0.4 ML SYG SC SCH (09:00)
--- NOTE | 2017-01-18 10:25 | CONS ---
Date/Time of Note Date/Time of Note DATE: 01/18/17 TIME: 10:22 Assessment/Plan Assessment/Plan Chief Complaint/Hosp Course assessment/impression - skin and soft tissue infection of LLE, improving - tinea pedis of L foot recommendations - continue cefazoline (01/17/2017); once edema and erythema improve, IV antibiotic can be switched to PO antibiotic e.g. cephalexin +/- Bactrim - continue applying clotrimazole cream for tinea pedis management d/w Pt Problems: Consultation Date/Type/Reason Admit Date/Time Jan 15, 2017 at 10:15 Initial Consult Date 01/17/17 Type of Consultation: ID Referring Provider: ADE RIVAS MD 24 HR Interval Summary Constitutional: improved Detailed Summary Eyes: no complaints ENT: no complaints Respiratory: no complaints Cardiovascular: no complaints Gastrointestinal: no complaints Genitourinary: no complaints Musculoskeletal: no complaints Skin: erythema (LLE, less than before), other (more discomfort at the distal end of LLE), rash (LLE) Neurologic: no complaints Exam/Review of Systems Vital Signs Vitals Vital Signs Date Time Temp Pulse Resp B/P Pulse Ox O2 Delivery O2 Flow Rate FiO2 01/18/17 07:31 98.6 60 18 122/61 98 Intake and Output 01/17/17 01/17/17 01/18/17 15:00 23:00 07:00 Intake Total 50 ml 2035 ml 420 ml Balance 50 ml 2035 ml 420 ml Exam Constitutional: alert, oriented, well developed Psych: nl mood/affect, no complaints Head: atraumatic, normocephalic Eyes: nl conjunctiva, nl lids ENMT: nl external ears & nose, nl nasal mucosa & septum Neck: supple Musculoskeletal: nl extremities to inspection Extremities: edema (LLE) Neurological: [employer]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, nl mental status, nl speech, No numbness Skin: rash or lesions (LLE: erythema, more pronounced at the distal end, non- TTP) Results Result Diagram: 01/18/17 0526 01/18/17 0526 Results 24 hrs Laboratory Tests Test 01/18/17 05:26 White Blood Count 10.9 H Red Blood Count 4.60 Hemoglobin 9.5 L Hematocrit 32.1 L Mean Corpuscular Volume 69.8 L Mean Corpuscular Hemoglobin 20.7 L Mean Corpuscular Hemoglobin Concent 29.6 L Red Cell Distribution Width 15.1 H Platelet Count 383 Mean Platelet Volume 10.1 Neutrophils % 62.6 Lymphocytes % 27.7 Monocytes % 6.2 Eosinophils % 2.0 Basophils % 0.5 Nucleated Red Blood Cells % 0.0 Neutrophils # 6.8 Lymphocytes # 3.0 H Monocytes # 0.7 Eosinophils # 0.2 Basophils # 0.1 Nucleated Red Blood Cells # 0.0 Sodium Level 141 Potassium Level 4.2 Chloride Level 104 Carbon Dioxide Level 24 Anion Gap 17 H Blood Urea Nitrogen 12 Creatinine 0.74 Glucose Level 102 Hemoglobin A1c 5.6 Calcium Level 9.3 Medications Medications Current Medications Acetaminophen/ Hydrocodone Bitart ([place] (5/325)) 1 tab Q6H PRN PO moderate pain; Start 01/15/17 at 06:00 Enoxaparin Sodium (Lovenox) 40 mg DAILY SC Last administered on 01/17/17 08:46 ; Admin Dose 40 MG; Start 01/15/17 at 09:00 Acetaminophen (Tylenol Tab) 650 mg Q4H PRN PO PAIN AND OR ELEVATED TEMP Last administered on 01/15/17 14:45; Admin Dose 650 MG; Start 01/15/17 at 06:00 Morphine Sulfate (morphine) 2 mg Q3H PRN IV severe pain; Start 01/15/17 at 06: 00 Pantoprazole (Protonix Tab) 40 mg DAILY@06 PO Last administered on 01/18/17 05 :40; Admin Dose 40 MG; Start 01/16/17 at 06:00 Amlodipine Besylate (Norvasc) 2.5 mg BID PO Last administered on 01/17/17 21: 00; Admin Dose 2.5 MG; Start 01/16/17 at 21:00 Hydralazine HCl 10 mg 10 mg Q6H PRN IV SYSTOLIC BP ABOVE 160; Start 01/16/17 at 11:00 Cefazolin Sodium (Ancef 1 Gm/50 ml (Pmx)) 50 ml @ 100 mls/hr Q8 IVPB Last administered on 01/18/17 05:41; Admin Dose 100 MLS/HR; Start 01/17/17 at 08:30 Clotrimazole (Lotrimin Cr) 1 applic BID TOP Last administered on 7/24/17at 21: 00; Admin Dose 1 APPLIC; Start 01/17/17 at 13:30; Stop 01/27/17 at 20:59 LEXIS HERNANDEZ M.D. Jan 18, 2017 10:24
[2017-01-18 13:58] VITALS: BP 123/63; RESP 18
[2017-01-18 14:01] VITALS: BP 101/61; RESP 18
--- NOTE | 2017-01-18 14:05 | PN ---
Date/Time of Note Date/Time of Note DATE: 01/18/17 TIME: 14:02 Assessment/Plan VTE Prophylaxis VTE Prophylaxis Intervention: SCD's Lines/Catheters [facility] Saline Lock Assessment/Plan Chief Complaint/Hosp Course Patient remains hemodynamically stable, left lower extremity was decreased erythema and edema, patient's complains of mild pain which is well controlled on current medication. Hemoglobin A1c is 5.6, stable blood pressure. Assessment/Plan - Left lower extremity cellulitis. Dr. Rivera is following an infection disease consultation. Continue antibiotics per ID. - Tinea pedis of L foot, continue clotrimazole cream. - Hypertension by history, currently patient is normotensive. - Morbid obesity with BMI of 43.2. Further recommendations based on clinical course. Plan of care discussed with Dr. Conroy. Problems: Exam/Review of Systems Vital Signs Vitals Vital Signs Date Time Temp Pulse Resp B/P Pulse Ox O2 Delivery O2 Flow Rate FiO2 01/18/17 13:58 98.3 63 18 123/63 99 Intake and Output 01/17/17 01/17/17 01/18/17 15:00 23:00 07:00 Intake Total 50 ml 2035 ml 420 ml Balance 50 ml 2035 ml 420 ml Exam Constitutional: alert, oriented Head: normocephalic Neck: supple Respiratory: normal air movement Cardiovascular: nl pulses Gastrointestinal: non-tender, soft Extremities: normal pulses, other (Left lower extremity was improved erythema and edema) Results Result Diagram: 01/18/17 0501/18/17 0526 Results 24 hrs Laboratory Tests Test 01/18/17 05:26 White Blood Count 10.9 H Red Blood Count 4.60 Hemoglobin 9.5 L Hematocrit 32.1 L Mean Corpuscular Volume 69.8 L Mean Corpuscular Hemoglobin 20.7 L Mean Corpuscular Hemoglobin Concent 29.6 L Red Cell Distribution Width 15.1 H Platelet Count 383 Mean Platelet Volume 10.1 Neutrophils % 62.6 Lymphocytes % 27.7 Monocytes % 6.2 Eosinophils % 2.0 Basophils % 0.5 Nucleated Red Blood Cells % 0.0 Neutrophils # 6.8 Lymphocytes # 3.0 H Monocytes # 0.7 Eosinophils # 0.2 Basophils # 0.1 Nucleated Red Blood Cells # 0.0 Sodium Level 141 Potassium Level 4.2 Chloride Level 104 Carbon Dioxide Level 24 Anion Gap 17 H Blood Urea Nitrogen 12 Creatinine 0.74 Glucose Level 102 Hemoglobin A1c 5.6 Calcium Level 9.3 Medications Medications Current Medications Acetaminophen/ Hydrocodone Bitart ([place] (5/325)) 1 tab Q6H PRN PO moderate pain Last administered on 01/18/17 13:36; Admin Dose 1 TAB; Start 01/15/17 at 06:00 Enoxaparin Sodium (Lovenox) 40 mg DAILY SC Last administered on 01/18/17 09:00 ; Admin Dose 40 MG; Start 01/15/17 at 09:00 Acetaminophen (Tylenol Tab) 650 mg Q4H PRN PO PAIN AND OR ELEVATED TEMP Last administered on 01/15/17 14:45; Admin Dose 650 MG; Start 01/15/17 at 06:00 Morphine Sulfate (morphine) 2 mg Q3H PRN IV severe pain; Start 01/15/17 at 06: 00 Pantoprazole (Protonix Tab) 40 mg DAILY@06 PO Last administered on 01/18/17 05 :40; Admin Dose 40 MG; Start 01/16/17 at 06:00 Amlodipine Besylate (Norvasc) 2.5 mg BID PO Last administered on 01/18/17 08: 13; Admin Dose 2.5 MG; Start 01/16/17 at 21:00 Hydralazine HCl 10 mg 10 mg Q6H PRN IV SYSTOLIC BP ABOVE 160; Start 01/16/17 at 11:00 Cefazolin Sodium (Ancef 1 Gm/50 ml (Pmx)) 50 ml @ 100 mls/hr Q8 IVPB Last administered on 01/18/17 13:32; Admin Dose 100 MLS/HR; Start 01/17/17 at 08:30 Clotrimazole (Lotrimin Cr) 1 applic BID TOP Last administered on 01/18/17 08: 13; Admin Dose 1 APPLIC; Start 01/17/17 at 13:30; Stop 01/27/17 at 20:59 CECILIA GARCIA Jan 18, 2017 14:05
[2017-01-18 19:29] VITALS: BP 102/56; RESP 20
[2017-01-19 01:47] VITALS: BP 138/65; RESP 20
[2017-01-19] MEDS: PANTOPRAZOLE (EC) 40 MG TAB PO SCH (05:58)
[2017-01-19] MEDS: CEFAZOLIN 1 GM/50 ML (PMX) 50 ML IVPB SCH ×2 (05:59→13:13)
[2017-01-19 06:17] LABS: BASOPHIL # 0.1 10^3/ul (0.0-0.1); BASOPHILS % 0.5 % (0.0-2.0); EOSINOPHILS # 0.2 10^3/ul (0.0-0.5); EOSINOPHILS % 2.3 % (0.0-7.0); HEMATOCRIT 32.4 % (37.0-47.0); HEMOGLOBIN 9.6 g/dl (12.0-16.0); LYMPHOCYTES # 2.8 10^3/ul (0.8-2.9); LYMPHOCYTES % 27.3 % (15.0-51.0); MEAN CORPUSCULAR HEMOGLOBIN 20.7 pg (29.0-33.0); MEAN CORPUSCULAR HGB CONC 29.6 g/dl (32.0-37.0); MEAN CORPUSCULAR VOLUME 69.8 fl (82.0-101.0); MEAN PLATELET VOLUME 10.2 fl (7.4-10.4); MONOCYTE # 0.7 10^3/ul (0.3-0.9); MONOCYTES % 7.2 % (0.0-11.0); NEUTROPHIL # 6.3 10^3/ul (1.6-7.5); NEUTROPHILS % 61.8 % (39.0-77.0); PLATELET COUNT 371 10^3/UL (140-415); RED BLOOD COUNT 4.64 10^6/ul (4.20-5.40); WHITE BLOOD COUNT 10.2 10^3/ul (4.8-10.8)
[2017-01-19 06:47] LABS: CALCIUM 9.1 mg/dl (8.4-10.2); CREATININE 0.76 mg/dl (0.44-1.00); POTASSIUM 4.2 mmol/L (3.5-5.1)
[2017-01-19 07:31] VITALS: BP 121/56; RESP 16
[2017-01-19] MEDS: CLOTRIMAZOLE 1% 30 GM CR TOP SCH (08:09)
[2017-01-19] MEDS: AMLODIPINE 2.5 MG TAB PO SCH (08:09)
[2017-01-19] MEDS: ENOXAPARIN 40 MG/0.4 ML SYG SC SCH (08:10)
--- NOTE | 2017-01-19 10:03 | CONS ---
Date/Time of Note Date/Time of Note DATE: 01/19/17 TIME: 10:01 Assessment/Plan Assessment/Plan Chief Complaint/Hosp Course assessment/impression - skin and soft tissue infection of LLE, improved - tinea pedis of L foot recommendations - continue cefazoline (01/17/2017)-->upon discharge, it may be switched to PO cephalexin - continue applying clotrimazole cream for tinea pedis management d/w Pt Problems: Consultation Date/Type/Reason Admit Date/Time Jan 15, 2017 at 10:15 Initial Consult Date 01/17/17 Type of Consultation: ID Referring Provider: ADE RIVAS MD 24 HR Interval Summary Constitutional: improved Detailed Summary Eyes: no complaints ENT: no complaints Respiratory: no complaints Cardiovascular: no complaints Gastrointestinal: no complaints Genitourinary: no complaints Musculoskeletal: no complaints Skin: erythema (less than before), other (less swelling) Neurologic: no complaints Exam/Review of Systems Vital Signs Vitals Vital Signs Date Time Temp Pulse Resp B/P Pulse Ox O2 Delivery O2 Flow Rate FiO2 01/19/17 07:31 98.0 54 16 121/56 96 Intake and Output 01/18/17 01/18/17 01/19/17 15:00 23:00 07:00 Intake Total 1460 ml 550 ml Balance 1460 ml 550 ml Exam Constitutional: alert, oriented, well developed Psych: nl mood/affect, no complaints Head: atraumatic, normocephalic Eyes: nl conjunctiva, nl lids ENMT: nl external ears & nose, nl nasal mucosa & septum Neck: supple Musculoskeletal: nl extremities to inspection Extremities: edema (trace, LLE) Skin: rash or lesions (faint erythema of RLE, less intense than before) Results Result Diagram: 01/19/17 0550 01/19/17 0550 Results 24 hrs Laboratory Tests Test 01/19/17 05:50 White Blood Count 10.2 Red Blood Count 4.64 Hemoglobin 9.6 L Hematocrit 32.4 L Mean Corpuscular Volume 69.8 L Mean Corpuscular Hemoglobin 20.7 L Mean Corpuscular Hemoglobin Concent 29.6 L Red Cell Distribution Width 15.0 H Platelet Count 371 Mean Platelet Volume 10.2 Neutrophils % 61.8 Lymphocytes % 27.3 Monocytes % 7.2 Eosinophils % 2.3 Basophils % 0.5 Nucleated Red Blood Cells % 0.0 Neutrophils # 6.3 Lymphocytes # 2.8 Monocytes # 0.7 Eosinophils # 0.2 Basophils # 0.1 Nucleated Red Blood Cells # 0.0 Sodium Level 142 Potassium Level 4.2 Chloride Level 102 Carbon Dioxide Level 28 Anion Gap 16 Blood Urea Nitrogen 14 Creatinine 0.76 Glucose Level 96 Calcium Level 9.1 Medications Medications Current Medications Acetaminophen/ Hydrocodone Bitart ([place] (5/325)) 1 tab Q6H PRN PO moderate pain Last administered on 01/18/17 13:36; Admin Dose 1 TAB; Start 01/15/17 at 06:00 Enoxaparin Sodium (Lovenox) 40 mg DAILY SC Last administered on 01/19/17 08:10 ; Admin Dose 40 MG; Start 01/15/17 at 09:00 Acetaminophen (Tylenol Tab) 650 mg Q4H PRN PO PAIN AND OR ELEVATED TEMP Last administered on 01/15/17 14:45; Admin Dose 650 MG; Start 01/15/17 at 06:00 Morphine Sulfate (morphine) 2 mg Q3H PRN IV severe pain; Start 01/15/17 at 06: 00 Pantoprazole (Protonix Tab) 40 mg DAILY@06 PO Last administered on 01/19/17 05 :58; Admin Dose 40 MG; Start 01/16/17 at 06:00 Amlodipine Besylate (Norvasc) 2.5 mg BID PO Last administered on 01/19/17 08: 09; Admin Dose 2.5 MG; Start 01/16/17 at 21:00 Hydralazine HCl 10 mg 10 mg Q6H PRN IV SYSTOLIC BP ABOVE 160; Start 01/16/17 at 11:00 Cefazolin Sodium (Ancef 1 Gm/50 ml (Pmx)) 50 ml @ 100 mls/hr Q8 IVPB Last administered on 01/19/17 05:59; Admin Dose 100 MLS/HR; Start 01/17/17 at 08:30 Clotrimazole (Lotrimin Cr) 1 applic BID TOP Last administered on 01/19/17 08: 09; Admin Dose 1 APPLIC; Start 01/17/17 at 13:30; Stop 01/27/17 at 20:59 LEXIS HERNANDEZ M.D. Jan 19, 2017 10:03
[2017-01-19] MEDS ORDERED: CLO15CR1 TOP (12:15)
[2017-01-19] MEDS ORDERED: AMLO2.5T78 PO (12:15)
[2017-01-19] MEDS ORDERED: CEPH500C PO (12:15)
[2017-01-19 14:04] VITALS: BP 122/58; RESP 20
--- NOTE | 2017-01-19 16:44 | DS ---
Date/Time of Note Date/Time of Note DATE: 01/19/17 TIME: 16:42 Discharge Summary Admission/Discharge Info Admit Date/Time Jan 15, 2017 at 10:15 Discharge Date/Time Patient Condition: Good Hx of Present Illness This is a 41 year old morbidly obese female patient got admitted with complaint of worsening left lower extremity infection. Please note that patient was diagnosed with cellulitis 2 days ago given Keflex, Bactrim and ibuprofen for symptoms-but patient failed antibiotic therapy. Patient denies shortness of breath, calves pain, fever, chills, dizziness, palpitations , focal weakness and numbness, abdominal pain nausea vomiting Patient denies any other medical conditions. Denies any recent travel. Denies any fall or injury vaccination status up-to-date. Patient got admitted under Dr. Conroy on [facility] floor.. ROS All systems reviewed and are negative except as per history of present illness. Hospital Course - Left lower extremity cellulitis. Dr. Rivera is following an infection disease consultation. Patient received IV cefazolin with improvement in symptoms. Discharged on p.o. Keflex. Case management asked to arrange for PMD follow-up appointment according to patient insurance insurance. - Tinea pedis of L foot, continue clotrimazole cream. - Hypertension by history, currently patient is normotensive. - Morbid obesity with BMI of 43.2. Home Meds Active Scripts Amlodipine Besylate* (Amlodipine Besylate*) 2.5 Mg Tablet, 2.5 MG PO BID for 30 Days, TAB Prov:CECILIA GARCIA 01/19/17 Clotrimazole (Clotrim) 15 Gm Cr, 1 APPLIC TOP BID for 7 Days Prov:CECILIA GARCIA 01/19/17 Cephalexin* (Cephalexin*) 500 Mg Capsule, 500 MG PO Q8 for 7 Days, #21 CAP Prov:CECILIA GARCIA 01/19/17 Omeprazole* (Prilosec*) 20 Mg Capsule., 20 MG PO DAILY, #30 CAP Prov:LOIS LO NP 01/28/16 Ondansetron Hcl* (Zofran* ODT) 4 mg -ODT Tab.disper, 4 MG PO Q8 Y for NAUSEA AND /OR VOMITING, #30 TAB Prov:LOIS LO NP 01/28/16 Magaldrate/Simethicone* (Mylanta*) 355 Ml Susp, 30 ML PO QID Y for GASTROINTESTINAL UPSET, #1 BOTTLE Prov:LOIS LO NP 01/28/16 Ibuprofen* (Motrin*) 600 Mg Tab, 600 MG PO Q6, #30 TAB Prov:SERGE SUTTON 04/29/15 Discontinued Reported Medications Acetaminophen/Hydrocodone (Vicodin) 1 Tab Tab, PO Q8 06/25/12 [None] No Conflict Check 02/16/12 [None] No Conflict Check 10/12/10 Discontinued Scripts Ibuprofen* (Motrin*) 600 Mg Tab, 600 MG PO Q6, #15 TAB Prov:DENISE MESA MD 01/12/17 Sulfamethoxazole/Trimethoprim* (Bactrim Ds* Tablet) 1 Each Tablet, 1 TAB PO BID for 7 Days, #14 TAB Prov:DENISE MESA MD 01/12/17 Cephalexin* (Keflex*) 500 Mg Capsule, 500 MG PO QID for 7 Days, CAP Prov:DENISE MESA MD 01/12/17 Follow-up Plan Follow-up with PMD in 2 weeks Primary Care Provider Care Physician No Primary Time spent on discharge: > 30 minutes Pending Labs Laboratory Tests Test 01/19/17 05:50 White Blood Count 10.210^3/ul (4.8-10.8) Red Blood Count 4.6410^6/ul (4.20-5.40) Hemoglobin 9.6g/dl (12.0-16.0) Hematocrit 32.4% (37.0-47.0) Mean Corpuscular Volume 69.8fl (82.0-101.0) Mean Corpuscular Hemoglobin 20.7pg (29.0-33.0) Mean Corpuscular Hemoglobin Concent 29.6g/dl (32.0-37.0) Red Cell Distribution Width 15.0% (11.5-14.5) Platelet Count 59200^3/UL (140-415) Mean Platelet Volume 10.2fl (7.4-10.4) Neutrophils % 61.8% (39.0-77.0) Lymphocytes % 27.3% (15.0-51.0) Monocytes % 7.2% (0.0-11.0) Eosinophils % 2.3% (0.0-7.0) Basophils % 0.5% (0.0-2.0) Nucleated Red Blood Cells % 0.0/100WBC (0.0-0.0) Neutrophils # 6.310^3/ul (1.6-7.5) Lymphocytes # 2.810^3/ul (0.8-2.9) Monocytes # 0.710^3/ul (0.3-0.9) Eosinophils # 0.210^3/ul (0.0-0.5) Basophils # 0.110^3/ul (0.0-0.1) Nucleated Red Blood Cells # 0.010^3/ul (0.0-0.0) Sodium Level 142mmol/L (135-144) Potassium Level 4.2mmol/L (3.5-5.1) Chloride Level 102mmol/L (97-110) Carbon Dioxide Level 28mmol/L (21-31) Anion Gap 16 (8-16) Blood Urea Nitrogen 14mg/dl (7-20) Creatinine 0.76mg/dl (0.44-1.00) Glucose Level 96mg/dl (70-220) Calcium Level 9.1mg/dl (8.4-10.2) CECILIA GARCIA Jan 19, 2017 16:44
== END 2017-01-19 18:35 | disposition home or self-care (01) | DRG 603 ==
LOC: FTE 21:40 → MS2 01-15 04:07 → OBSVTOIN 01-15 10:15
PROVIDERS: ADMIT Internal Medicine; ATTEND Internal Medicine
DX: L03.115 Cellulitis of right lower limb (principal); Z68.41 Body mass index [BMI] 40.0-44.9, adult; I10 Essential (primary) hypertension; N39.0 Urinary tract infection, site not specified; B35.3 Tinea pedis; E66.01 Morbid (severe) obesity due to excess calories; R60.0 Localized edema; Z88.6 Allergy status to analgesic agent
CPT/HCPCS: 36415; 80048; 80053; 80202; 81001; 82962; 83036; 85025; 85610; 85730; 93971; 96372; 96374; G0378; J0690; J0696; J1650; J2270; J3370; J7030; J7040; J7050

== ENCOUNTER 2017-09-11 08:17 | Emergency (ER) | END 2017-09-11 09:45 | disposition home or self-care (01) ==

== ENCOUNTER 2017-11-30 10:39 | Emergency (ER) | END 2017-11-30 11:04 | disposition home or self-care (01) ==

== ENCOUNTER 2018-02-03 22:15 | Emergency (ER) | END 2018-02-04 02:10 | disposition home or self-care (01) ==